=== PATIENT | male | born 1940 | race Caucasian/White ===

== ENCOUNTER 2017-07-13 14:14 | Inpatient (IN) | payer OTHER, BC ==
--- NOTE | 2017-07-13 15:41 | EDPHY ---
H & P Stated Complaint: cough HPI/ROS: CHIEF COMPLAINT: cough HISTORY OF PRESENT ILLNESS: The patient is a 76 y/o male with a history of lymphoma being treated with chemotherapy complaining of wheezing, coughing, rhinorrhea, inability to sleep, tachycardia, and mild fever, onset 5 days ago. He reports a new onset wheeze and a productive cough beginning five days ago. Around that time he also began having trouble sleeping. He is unsure of his fever. He went to urgent care this morning who directed him to the ED. He has associated increased oxygen need. He has nausea due to chemo being treated with Zofran. He denies diarrhea, myalgias, pain or burning with urination, or any other associated symptoms. No influenza vaccination. REVIEW OF SYSTEMS: A ten point review of systems was performed and is negative with the exception of the items mentioned in the HPI. Past medical history: 1. 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 Vital signs reviewed. Blood pressure 132/76, respiratory rate 22, room air pulse ox 80%. Eyes: Pupils equal and round, no conjunctival injection, no discharge. Anicteric. ENT, Mouth: Mucous membranes are moist, no oropharyngeal erythema or edema. Lips are dry. Neck: No lymphadenopathy, supple. No meningeal signs. Trachea midline. Respiratory: Bilateral scattered wheezes with course breath sounds. Cardiovascular: Regular rate and rhythm; no murmur, rub, or gallop. Gastrointestinal: Abdomen is soft and nontender, no masses or organomegaly, bowel sounds normal. Skin: Warm and dry, no rashes on exposed skin, normal color. Back: Nontender to palpation over the thoracolumbar spine. No CVAT. Extremities: No lower extremity edema, no calf tenderness or swelling. Neurological: Alert and oriented. Moving all four extremities easily and equally. MARKIE. EOMI. Facial expression symmetric. Tongue midline. Psychiatric: Normal affect. Source: Patient - Personal History Current Tetanus/Diphtheria Vaccine: Yes Current Tetanus Diphtheria and Acellular Pertussis (TDAP): Yes - Medical/Surgical History Hx Asthma: No Hx Chronic Respiratory Disease: No Hx Diabetes: No Hx Cardiac Disease: No Hx Renal Disease: No Hx Cirrhosis: No Hx Alcoholism: No Hx HIV/AIDS: No Hx Splenectomy or Spleen Trauma: No Other PMH: lymphoma, L wrist fx, - Social History Smoking Status: Never smoked Constitutional: Initial Vital Signs Temperature (C) 37.1 C 07/13/17 14:30 Heart Rate 99 07/13/17 14:30 Respiratory Rate 22 H 07/13/17 14:30 Blood Pressure 132/76 H 07/13/17 14:30 O2 Sat (%) 80 L 07/13/17 14:30 O2 Delivery Mode Nasal Cannula O2 (L/minute) 2 Allergies/Adverse Reactions: No Known Allergies Allergy (Verified 07/13/17 18:04) Home Medications: Medication Instructions Recorded Mesalamine 4.8 gm PO DAILY 07/13/17 Ondansetron Odt [Zofran Odt 4 mg 4 mg PO Q4 PRN 07/13/17 (*)] Romidepsin [Istodax] 10 mg IV MO 07/13/17 valACYclovir [Valtrex (*)] 500 mg PO DAILY PRN 07/13/17 Acetaminophen [Tylenol 325mg (*)] 650 mg PO Q4HRS PRN tab 07/19/17 Albuterol [Proventil Inhaler HFA 2 puffs IH Q4H PRN #1 mdi 07/19/17 (*)] Azithromycin [Zithromax] 500 mg PO DAILY 1 Days tab 07/19/17 Benzonatate [Tessalon Pearles] 100 mg PO TID PRN #30 cap 07/19/17 Cefdinir [Omnicef (*)] 300 mg PO BID 1 Days cap 07/19/17 Hydrocodone/APAP 5/325 [[place] 1 - 2 tab PO Q4HRS PRN #10 tab 07/19/17 5/325 (*)] guaiFENesin [Mucinex 600 MG (*)] 1,200 mg PO BID PRN #20 tab.er 07/19/17 predniSONE 20 mg PO BID #14 tablet 07/19/17 Medical Decision Making ED Course/Re-evaluation: The patient presents with a five day history of cough, wheezing, tachycardia, and difficulty sleeping. On exam he has scattered wheezes and course breath sounds. Plan for chest X-ray, labs, and flu swab. Flu A is positive and chest X-ray shows a lower right pneumonia. In addition, there is a mass in his upper right chest. I reassessed the patient and informed him of the results of his workup. He is not aware of having a chest mass and had a PET scan two months ago. He will be admitted for further treatment. He agrees. He also would like antivirals. Plan for admit. CT of chest reveals bilateral multifocal pneumonia. Lactate is 1.6. He arrived tachypneic and has an elevated WBC at 15,000-- qualifying for sepsis. He does not have severe sepsis. He will be treated with Azithromycin and rocephin for pneumonia and is being admitted to the hospitalist service. Differential Diagnosis: Fever in adults including but not limited to pneumonia, urinary tract infection , viral syndrome, and influenza. - Data Points Laboratory Results: Laboratory Results 07/13/17 16:00 07/13/17 16:00 Medications Given: Discontinued Medications Hydrocodone Bitart/Acetaminophen ([place] 5/325) 1 tab PO EDNOW ONE Stop: 07/13/17 19:01 Last Admin: 07/13/17 19:07 Dose: 1 tab Hydrocodone Bitart/Acetaminophen ([place] 5/325) 1 - 2 tab PO Q4HRS PRN PRN Reason: Pain, Moderate Able to Take PO Stop: 07/23/17 20:09 Last Admin: 07/13/17 22:07 Dose: 1 tab Albuterol (Proventil Neb) 3 ml IH EDNOW ONE Stop: 07/13/17 16:18 Last Admin: 07/13/17 16:32 Dose: 3 ml Albuterol (Proventil Neb) 3 ml IH Q1HR PRN PRN Reason: Short of Breath/Dyspnea Stop: 01/10/18 06:27 Last Admin: 07/14/17 12:07 Dose: 3 ml Albuterol/Ipratropium (Duoneb) 3 ml IH QID [facility] Stop: 01/09/18 20:59 Last Admin: 07/14/17 10:48 Dose: 3 ml Albuterol/Ipratropium (Duoneb) 3 ml IH Q4 [facility] Stop: 01/10/18 17:59 Last Admin: 07/18/17 16:38 Dose: 3 ml Azithromycin (Zithromax) 500 mg PO DAILY AYAAN PRN Reason: Protocol Stop: 07/20/17 08:59 Last Admin: 07/19/17 09:13 Dose: 500 mg Benzonatate (Tessalon Pearles) 100 mg PO TID PRN PRN Reason: Cough, Mild Stop: 01/10/18 07:24 Last Admin: 07/18/17 17:09 Dose: 100 mg Enoxaparin Sodium (Lovenox) 40 mg SC DAILY AYAAN Stop: 01/10/18 08:59 Last Admin: 07/19/17 09:12 Dose: 40 mg Guaifenesin (Mucinex) 1,200 mg PO BID AYAAN Stop: 01/10/18 14:14 Last Admin: 07/18/17 20:39 Dose: 1,200 mg Guaifenesin/Dextromethorphan (Robitussin Dm Oral Liquid) 10 ml PO Q4HRS PRN PRN Reason: Cough, Moderate Stop: 01/10/18 07:25 Last Admin: 07/18/17 17:09 Dose: 10 ml Sodium Chloride (Ns) 1,000 mls @ 0 mls/hr IV EDNOW ONE; Wide Open PRN Reason: Protocol Stop: 07/13/17 16:13 Last Admin: 07/13/17 16:32 Dose: 1,000 mls Azithromycin 500 mg/ Dextrose 255 mls @ 255 mls/hr IV EDNOW ONE PRN Reason: Protocol Stop: 07/13/17 18:31 Last Admin: 07/13/17 18:44 Dose: 255 mls Ceftriaxone Sodium/Dextrose (Rocephin 1 Gm (Premix)) 50 mls @ 100 mls/hr IV EDNOW ONE PRN Reason: Protocol Stop: 07/13/17 18:01 Last Admin: 07/13/17 17:51 Dose: 50 mls Sodium Chloride (Ns) 1,000 mls @ 0 mls/hr IV EDNOW ONE; Wide Open PRN Reason: Protocol Stop: 07/13/17 18:53 Last Admin: 07/13/17 19:01 Dose: 1,000 mls Azithromycin 500 mg/ Dextrose 255 mls @ 255 mls/hr IV DAILY AYAAN PRN Reason: Protocol Stop: 08/13/17 08:59 Last Admin: 07/18/17 09:03 Dose: 255 mls Ceftriaxone Sodium/Dextrose (Rocephin 1 Gm (Premix)) 50 mls @ 100 mls/hr IV DAILY AYAAN PRN Reason: Protocol Stop: 08/13/17 08:59 Last Admin: 07/19/17 09:13 Dose: 50 mls Potassium Chloride/Sodium Chloride (Ns W/ 20 Kcl/L) 1,000 mls @ 125 mls/hr IV CONT AYAAN Stop: 01/09/18 20:14 Last Admin: 07/14/17 06:13 Dose: 1,000 mls Lorazepam (Ativan) 0.5 - 1 mg PO Q8HRS PRN PRN Reason: Anxiety, Able to Take PO Stop: 01/09/18 20:09 Last Admin: 07/16/17 03:15 Dose: 0.5 mg Miscellaneous Medication (Mesalamine [Mesalamine]) 4.8 gm PO DAILY AYAAN Stop: 01/09/18 20:14 Last Admin: 07/19/17 09:14 Dose: 4.8 gm Miscellaneous Medication (Romidepsin [Istodax]) 10 mg IV MO AYAAN Stop: 01/14/18 08:59 Last Admin: 07/18/17 09:50 Dose: Not Given Ondansetron HCl (Zofran) 4 mg IVP EDNOW ONE Stop: 07/13/17 16:13 Last Admin: 07/13/17 16:32 Dose: 4 mg Ondansetron HCl (Zofran) 4 mg IVP EDNOW ONE Stop: 07/13/17 17:48 Last Admin: 07/13/17 17:51 Dose: 4 mg Oseltamivir Phosphate (Tamiflu) 75 mg PO EDNOW ONE Stop: 07/13/17 17:03 Last Admin: 07/13/17 17:32 Dose: 75 mg Oseltamivir Phosphate (Tamiflu) 75 mg PO BIDMEAL [facility] Stop: 07/18/17 18:01 Last Admin: 07/18/17 17:10 Dose: 75 mg Prednisone (Prednisone) 1 mg PO DAILY [facility] Stop: 01/10/18 08:59 Last Admin: 07/14/17 08:28 Dose: 1 mg Prednisone (Prednisone) 20 mg PO ONCE ONE Stop: 07/14/17 14:04 Last Admin: 07/14/17 15:01 Dose: 20 mg Prednisone (Prednisone) 40 mg PO BID [facility] Stop: 01/10/18 20:59 Last Admin: 07/19/17 09:13 Dose: 40 mg Departure - Departure Disposition: [facility] Inpatient Acute Clinical Impression: Influenza A Pneumonia Qualifiers: Pneumonia type: due to unspecified organism Laterality: right Lung location: lower lobe of lung Qualified Code(s): J18.1 - Lobar pneumonia, unspecified organism Condition: Good Report Scribed for: Kellen Shah Report Scribed by: Lucero Johnson Physician Review and Approval Statement: 07/13/17 15:41 Portions of this note were transcribed by the hospitalist medical director. I, Dr. Kellen Shah, personally performed the history, physical exam, and medical decision- making; and confirmed the accuracy of the information in the transcribed note.
[2017-07-13] MEDS ORDERED: ONDANSETRON 4 MG/2 ML VIAL IVP ONE ×2 (16:12→17:47)
[2017-07-13] MEDS ORDERED: NS 1,000 ML IV ONE ×2 (16:12→18:52)
[2017-07-13 16:14] LABS: PLATELET COUNT 327 10^3/uL (150-400)
[2017-07-13] MEDS ORDERED: ALBUTEROL 3 ML DEYVIAL IH ONE (16:17)
[2017-07-13 16:22] LABS: INR 1.41 (0.83-1.16); PROTIME(PATIENT) 17.4 SEC (12.0-15.0)
[2017-07-13] MEDS ORDERED: OSELTAMIVIR PHOSPHATE 75 MG CAP PO ONE (17:02)
[2017-07-13] MEDS ORDERED: IOPAMIDOL (ISOVUE-300) 100 ML BTL ONE ×2 (17:30→17:41)
[2017-07-13] MEDS ORDERED: AZITHROMYCIN IV 500 MG in D5W 250 ML IV ONE (17:32)
[2017-07-13] MEDS ORDERED: ONDANSETRON 4 MG/2 ML VIAL ONE (17:55)
[2017-07-13] MEDS ORDERED: HYDROCODONE/APAP 5/325 TAB PO ONE (19:00)
[2017-07-13] MEDS ORDERED: ONDANSETRON 4 MG/2 ML VIAL IVP PRN (20:10)
[2017-07-13] MEDS ORDERED: oxyCODONE IR 5 MG TAB PO PRN (20:10)
[2017-07-13] MEDS ORDERED: ONDANSETRON DISINTEGRATING 4 MG TAB PO PRN ×2 (20:10→20:15)
[2017-07-13] MEDS ORDERED: HYDROCODONE/APAP 5/325 TAB PO PRN (20:10)
[2017-07-13] MEDS ORDERED: ACETAMINOPHEN 325 MG TAB PO PRN (20:10)
[2017-07-13] MEDS ORDERED: ZOLPIDEM TARTRATE 5 MG TAB PO PRN (20:10)
[2017-07-13] MEDS ORDERED: LORazepam 2 MG/ML INJ IVP PRN (20:10)
[2017-07-13] MEDS ORDERED: HYDROmorphone HCL/NS/PF 0.4 MG/2 ML SYR IVP PRN (20:10)
[2017-07-13] MEDS ORDERED: valACYclovir 500 MG TAB PO PRN (20:15)
--- NOTE | 2017-07-13 20:35 | GHP ---
[f rep st] HISTORY AND PHYSICAL DATE OF ADMISSION: 07/13/2017 CHIEF COMPLAINT: Cough, shortness of breath and myalgias. 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 This has been persistent during his travel from [facility] back to [place]. He has had a cough which has been nonproductive and nonpleuritic without si gns of hemoptysis. He has had mild fever, no shaking chills. He also reports trouble sleeping witho ut orthopnea, PND, or signs of chest pain. He was seen in an urgent care which then directed him to the emergency department. He was noted to be hypoxic. In the emergency department, he was noted to be hypoxic on room air and appears to be moderately ill. Chest x-ray confirmed the findings of a rig ht lower lobe pneumonia and a CT scan revealed a right upper lobe pneumonia. These scans have been r eviewed by myself and with Radiology. Laboratory confirmed the findings of a positive influenza A. PAST MEDICAL HISTORY: Denies prior asthma, allergies, high blood pressure or diabetes. PAST SURGICAL HISTORY: None. FAMILY HISTORY: Shows no history of a bleeding diathesis, clotting disorder, histories of cancer or coronary disease. His brother does have prostate and colon cancer and he reports he of an UT, a lthough he reports his brother was quite overweight. This may represent a family history although th at is unclear. SOCIAL HISTORY: The gentleman lives here in [place] and also lives in [place]. His oncologist is at [facility]. He has been traveling. He has been receiving chemotherapy at [facility] on a weekly basis, either flying to [place] or driving there. 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 He receives on a weekly basis with associated side effects o f some nausea and a loss of taste of any food or wine. REVIEW OF SYSTEMS: A 10-point review of systems is otherwise negative except as noted above. Specif ically, he denies any diarrhea, pain and burning on urination, joint disorders or rash. PHYSICAL EXAMINATION: GENERAL: This is a well-developed, somewhat flushed appearing gentleman. VIT AL SIGNS: His initial blood pressure was slightly elevated and was hypoxic on room air at 80% and he was placed on supplemental oxygen. Respiratory rate has been as high as 22. His highest temperatur e was 37.1. He is noted also to have a leukocytosis of 15,000. HEENT: Shows his TMs are fuller. The throat is very mildly injected without lesions on the tongue or buccal mucosa. CHEST WALL: Nontend er to palpation without inspiratory splinting. LUNGS: Somewhat diminished. Breath sounds are reduc ed air movement but there is no wheezing but only few scattered crackles are heard. It is possible I can hear rales in his right lower lobe but I certainly cannot in the right upper lobe. HEART: Regu lar rate and rhythm. Normal S1, S2. The JVP is normal. ABDOMEN: Nontender, benign without hepatos plenomegaly. EXTREMITIES: No edema or cyanosis. Joints are without inflammation. LABORATORY: WBC elevated at 15,000, hemoglobin slightly low at 12.2. His INR is very slightly eleva telma at 1.49. Venous lactate 1.6 and normal chemistry panel. He has a mild respiratory acidosis with a CO2 level of 32 and a chloride of 89, calcium is 8.4, with normal renal function. His urine eben sis shows a mixture of mat of things but his final results are currently pending. He shows 2+ protei n, ketones and blood in the urine. The PCR for influenza A was detected positive and is negative for influenza B. A CT scan of the chest confirmed the findings of a right lower lobe and a right upper lobe pneumonia. He has multifocal bilateral pneumonia with more focal areas of nodular opacification in the right l debbie. There are small bilateral pleural effusions. The ascending aorta is slightly dilated at 4 cm w ithout evidence of dissection. There is evidence of atherosclerotic disease in the coronary arteries . ASSESSMENT: 1. Acute pneumonia in the right upper lobe and right lower lobe. This is confirmed to be both an in fluenza A and may be a secondary bacterial infection of a community-acquired pneumonia. He has been suffering from this for the last 5 days during his transport and thus, may have secondarily developed a bacterial infection. I will order a procalcitonin to assess possibility of a bacterial infection but he will be treated with azithromycin, Rocephin and Tamiflu. He is clearly outside the window for an influenza infection although this may be prudent. This can be assessed within 24-48 hours and ad ditionally, he will be given pulmonary bronchodilators. Steroids will be held at this time. 2. Lymphoma, Sezary syndrome. The gentleman has been receiving Romidepsin on a weekly basis at [facility]. An Oncology consultation may be prudent just to complete the evaluation of this matter as to w hether there is any further care which would be needed for his lymphoma. Note that his white count w as elevated at 15,000 although differential is currently pending. His absolute neutrophils though ar e reported as 1.55 and thus he does not have a neutropenic fever or infection. 3. He has acute sepsis secondary to pneumonia with leukocytosis, hypoxemia and tachypnea. It is lik ricki secondary to the pneumonia. Two blood cultures are currently pending. 4. His code status is full. 5. Deep venous thrombosis prophylaxis will be with Lovenox. 6. The elevated INR is perhaps secondary to his acute infection and may be due to the Romidepsin. A full CMP will be ordered to assess his liver function status. DISPOSITION: The gentleman will be admitted to inpatient status as it is likely to require greater t krause 2 midnights to resolve this matter. /[id number]/MODL
[2017-07-13] MEDS: NS W/ 20 KCl/L 1,000 ML IV SCH (22:07)
[2017-07-13] MEDS: MESALAMINE 4.8 GM PO SCH (22:17)
[2017-07-13] MEDS: IPRATROPIUM/ALBUTEROL 3 ML DEYVIAL IH SCH (23:00)
[2017-07-14] MEDS: IPRATROPIUM/ALBUTEROL 3 ML DEYVIAL IH SCH ×4 (04:59→22:25)
[2017-07-14 05:28] LABS: PLATELET COUNT 305 10^3/uL (150-400)
[2017-07-14 05:36] LABS: INR 1.44 (0.83-1.16); PROTIME(PATIENT) 17.7 SEC (12.0-15.0)
[2017-07-14] MEDS: LORazepam 0.5 MG TAB PO PRN (06:13)
[2017-07-14] MEDS: NS W/ 20 KCl/L 1,000 ML IV SCH (06:13)
[2017-07-14] MEDS: ALBUTEROL 3 ML DEYVIAL IH PRN ×2 (07:01→12:07)
[2017-07-14] MEDS: BENZONATATE 100 MG CAP PO PRN ×2 (07:38→18:14)
[2017-07-14] MEDS: GUAIFENESIN/DM 10 ML UDCUP PO PRN (07:38)
[2017-07-14] MEDS: ENOXAPARIN 40 MG/0.4 ML SYR SC SCH (08:28)
[2017-07-14] MEDS: OSELTAMIVIR PHOSPHATE 75 MG CAP PO SCH ×2 (08:28→18:15)
[2017-07-14] MEDS: AZITHROMYCIN IV 500 MG in D5W 250 ML IV SCH (08:28)
[2017-07-14] MEDS: MESALAMINE 4.8 GM PO SCH (08:29)
[2017-07-14] MEDS ORDERED: predniSONE 1 MG TAB PO SCH ×2 (09:00→21:00)
--- NOTE | 2017-07-14 12:05 | PDMN ---
Medical Necessity Medical necessity: Pt meets IP criteria per MD; est los >2 mn for eval/tx of possible sepsis r/t pneumonia & influenza A w/hypoxemia, tachypnea, mild fever, cough, as well as elevated INR; admit for further workup/monitoring, supportive care, IVFs, IV abx, blood cxs & bronchodilators; hx Sezary syndrome lymphoma on chemo; per H&P & order 07/13/17
[2017-07-14] MEDS ORDERED: predniSONE 20 MG TAB PO ONE (14:03)
[2017-07-14] MEDS: guaiFENesin 600 MG TAB.ER PO SCH ×2 (15:01→21:16)
--- NOTE | 2017-07-14 15:38 | HOSPPROG ---
Hospitalist Progress Note Assessment/Plan: 76-year-old male with known lymphoma admitted yesterday with multiple lobe pneumonia. Since then he has had worsening hypoxemia, afebrile, and increasing cough, - acute multilobar pneumonia most noted in the right upper lobe and right lower lobe. Procalcitonin is elevated suggestive of a bacterial infection in addition to his influenza infection. Currently he is treated with both Tamiflu and Rocephin plus Zithromax. Hypoxemia is worsening with coarse breath sounds. Plan: Increase duo nebs to q.4 hours add Mucinex and add prednisone orally in higher doses. - Sezary syndrome lymphoma: He receives chemotherapy weekly at [facility]. Oncology will be consulted. - sepsis on admission with tachypnea tachycardia hypertension leukocytosis. Sepsis secondary to acute Bacterial and viral pneumonia pneumonia. - Disposition: Undetermined patient should be inpatient status. Subjective: Reports he has worsening shortness of breath and the noted he needs more oxygen. Cough is productive of whitish sputum. No hemoptysis or chest pain. Objective: Vital Signs Temp Pulse Resp BP Pulse Ox 36.6 C 95 20 137/82 H 95 07/14/17 11:35 07/14/17 12:09 07/14/17 12:09 07/14/17 11:40 07/14/17 12:09 Laboratory Results 07/14/17 05:00 07/14/17 05:00 07/13/17 07/14/17 07/15/17 05:59 05:59 05:59 Intake Total 2300 982 Balance 2300 982 PT 17.7 SEC (12.0-15.0) H 07/14/17 05:00 INR 1.44 (0.83-1.16) H 07/14/17 05:00 - Time Spent With Patient Time Spent with Patient: greater than 35 minutes Time Spent with Patient: Greater than 35 minutes spent on this patients care, greater than 50% of time spent counseling, educating, and coordinating care regarding the above mentioned plan. - Pending Discharge Pending Discharge Within 24 Hours: No Pending Discharge Within 48 Hours: No - Physical Exam Constitutional: other ( Mild respiratory distress noted with tachypnea) Eyes: PERRL, anicteric sclera Ears, Nose, Mouth, Throat: moist mucous membranes, hearing normal Cardiovascular: regular rate and rhythym, no murmur, rub, or gallop Respiratory: reduced air movement, expiratory wheeze, inspiratory crackles, bronchial breath sounds, rhonchi Gastrointestinal: normoactive bowel sounds, soft, non-tender abdomen, no palpable masses Genitourinary: no bladder fullness Skin: warm Musculoskeletal: full muscle strength Neurologic: AAOx3 Psychiatric: interacting appropriately ICD10 Worksheet Patient Problems: Problems Problem Status Onset Influenza A Acute Pneumonia Acute
--- NOTE | 2017-07-14 16:01 | ASMTCMCOM ---
CM Note CM Note Notes: Pt admitted w/flu and PNA. Per H&P, pt is currently being treated at [facility] with chemo for Sezary Lymphoma. His oncologist is at [place] and pt also has family near [place]. Met w/pt to discuss; he lives w/ partner marketing intern here in [place] and partner marketing intern in [place] and makes trips to [place] for treatments. Pt said they plan to be here for next two weeks at least. DC needs, if any, not clear yet. CM will follow. Date Signed: 07/14/2017 04:00 PM Electronically Signed By:Stacia Kline RN
[2017-07-14] MEDS: predniSONE 20 MG TAB PO SCH ×2 (21:17→23:03)
[2017-07-15] MEDS: BENZONATATE 100 MG CAP PO PRN ×2 (00:46→20:45)
[2017-07-15] MEDS: LORazepam 0.5 MG TAB PO PRN (00:46)
[2017-07-15] MEDS: IPRATROPIUM/ALBUTEROL 3 ML DEYVIAL IH SCH ×6 (03:27→22:22)
[2017-07-15 05:45] LABS: INR 1.43 (0.83-1.16); PROTIME(PATIENT) 17.6 SEC (12.0-15.0)
[2017-07-15 05:58] LABS: PLATELET COUNT 369 10^3/uL (150-400)
--- NOTE | 2017-07-15 08:25 | HOSPPROG ---
Hospitalist Progress Note Assessment/Plan: 76-year-old male with known lymphoma admitted yesterday with multiple lobe pneumonia. Since then he has had worsening hypoxemia, afebrile, and increasing cough, - acute multilobar pneumonia most noted in the right upper lobe and right lower lobe. Procalcitonin is elevated suggestive of a bacterial infection in addition to his influenza infection. Currently he is treated with both Tamiflu and Rocephin plus Zithromax. Hypoxemia is worsening with coarse breath sounds. Plan: Increase duo nebs to q.4 hours add Mucinex and add prednisone orally in higher doses. - Sezary syndrome lymphoma: He receives chemotherapy weekly at [facility]. Oncology will be consulted. - sepsis on admission with tachypnea tachycardia hypertension leukocytosis. Sepsis secondary to acute Bacterial and viral pneumonia pneumonia. - Disposition: Undetermined patient should be inpatient status. CT scan of the chest was reviewed with Radiology possibly exists of the right upper lobe mass being an extensive lymphoma. Oncology will be consulted. Will continue his current pulmonary care as he is slowly improving. Time 45 min Subjective: Reports he feels maybe slightly better than the cough is slightly productive of whitish sputum. He has minimal appetite as he has no taste secondary to his chemotherapy. No vomiting Objective: Vital Signs Temp Pulse Resp BP Pulse Ox 36.7 C 81 16 145/100 H 96 07/15/17 07:30 07/15/17 07:30 07/15/17 07:30 07/15/17 07:30 07/15/17 07:30 Laboratory Results 07/15/17 05:00 07/14/17 05:00 07/14/17 07/15/17 07/16/17 05:59 05:59 05:59 Intake Total 2300 2032 Balance 2300 2032 PT 17.6 SEC (12.0-15.0) H 07/15/17 05:00 INR 1.43 (0.83-1.16) H 07/15/17 05:00 Laboratory Tests 07/13/17 07/13/17 07/13/17 16:00 16:00 16:00 WBC 15.45 H Hgb 12.2 L INR 1.41 H Procalcitonin 0.58 H 07/14/17 07/14/17 07/15/17 05:00 05:00 05:00 WBC 14.32 H 16.48 H Hgb 9.7 L 9.9 L INR 1.44 H Procalcitonin 07/15/17 05:00 WBC Hgb INR 1.43 H Procalcitonin - Time Spent With Patient Time Spent with Patient: greater than 35 minutes Time Spent with Patient: Greater than 35 minutes spent on this patients care, greater than 50% of time spent counseling, educating, and coordinating care regarding the above mentioned plan. - Pending Discharge Pending Discharge Within 24 Hours: No Pending Discharge Within 48 Hours: No - Physical Exam Constitutional: other (Acutely ill with respiratory difficulties. Patient requiring supple oxygen) Eyes: PERRL Ears, Nose, Mouth, Throat: moist mucous membranes, hearing normal Cardiovascular: regular rate and rhythym, no murmur, rub, or gallop Respiratory: reduced air movement, expiratory wheeze, inspiratory crackles, bronchial breath sounds, rhonchi Gastrointestinal: normoactive bowel sounds, soft, non-tender abdomen, no palpable masses Genitourinary: no bladder fullness Skin: warm Musculoskeletal: generalized weakness Neurologic: AAOx3, CN II-XII Intact ICD10 Worksheet Patient Problems: Problems Problem Status Onset Influenza A Acute Pneumonia Acute
[2017-07-15] MEDS: OSELTAMIVIR PHOSPHATE 75 MG CAP PO SCH ×2 (09:05→16:52)
[2017-07-15] MEDS: guaiFENesin 600 MG TAB.ER PO SCH ×2 (09:05→20:45)
[2017-07-15] MEDS: predniSONE 20 MG TAB PO SCH ×2 (09:05→21:05)
[2017-07-15] MEDS: MESALAMINE 4.8 GM PO SCH (09:06)
[2017-07-15] MEDS: ENOXAPARIN 40 MG/0.4 ML SYR SC SCH (09:07)
[2017-07-15] MEDS: AZITHROMYCIN IV 500 MG in D5W 250 ML IV SCH (10:44)
[2017-07-15] MEDS: GUAIFENESIN/DM 10 ML UDCUP PO PRN (11:34)
--- NOTE | 2017-07-15 17:19 | ASMTCMCOM ---
CM Note CM Note Notes: Spoke w/RN, states pt will be indenpendent at dc. Anticipate will dc home w/support of when medically stable. CM available for any changes. Date Signed: 07/15/2017 05:19 PM Electronically Signed By:Lianet Urbina RN
[2017-07-16] MEDS: IPRATROPIUM/ALBUTEROL 3 ML DEYVIAL IH SCH ×6 (01:28→22:51)
[2017-07-16] MEDS: GUAIFENESIN/DM 10 ML UDCUP PO PRN ×3 (03:15→17:59)
[2017-07-16] MEDS: LORazepam 0.5 MG TAB PO PRN (03:15)
[2017-07-16 05:17] LABS: PLATELET COUNT 477 10^3/uL (150-400)
[2017-07-16] MEDS: OSELTAMIVIR PHOSPHATE 75 MG CAP PO SCH ×2 (08:38→17:59)
[2017-07-16] MEDS: AZITHROMYCIN IV 500 MG in D5W 250 ML IV SCH (08:38)
[2017-07-16] MEDS: ENOXAPARIN 40 MG/0.4 ML SYR SC SCH (08:38)
[2017-07-16] MEDS: predniSONE 20 MG TAB PO SCH ×2 (08:38→20:35)
[2017-07-16] MEDS: guaiFENesin 600 MG TAB.ER PO SCH ×2 (08:38→20:35)
[2017-07-16] MEDS: MESALAMINE 4.8 GM PO SCH (08:39)
--- NOTE | 2017-07-16 11:52 | HOSPPROG ---
Hospitalist Progress Note Assessment/Plan: 76-year-old male with known lymphoma admitted yesterday with multiple lobe pneumonia. Since then he has had worsening hypoxemia, afebrile, and increasing cough, - acute multilobar pneumonia most noted in the right upper lobe and right lower lobe. Procalcitonin is elevated suggestive of a bacterial infection in addition to his influenza infection. Currently he is treated with both Tamiflu and Rocephin plus Zithromax. 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 Oncology will be consulted. Discussed with Dr Lucille Hadley who will see - sepsis on admission with tachypnea tachycardia hypertension leukocytosis. Sepsis secondary to acute Bacterial and viral pneumonia pneumonia. - Disposition: Undetermined patient should be inpatient status. CT scan of the chest was reviewed with Radiology possibly exists of the right upper lobe mass being an extensive lymphoma. Will continue his current pulmonary care as he is slowly improving. Oncology to consult today. Oncology did note appreciated and patient will begin chemotherapy tomorrow. Time 45 min Subjective: reports feeling better without fever, cough, SOB. hemoptysis Objective: Vital Signs Temp Pulse Resp BP Pulse Ox 36.6 C 81 16 152/98 H 94 07/16/17 07:20 07/16/17 07:20 07/16/17 07:20 07/16/17 07:20 07/16/17 07:20 Laboratory Results 07/16/17 05:05 07/16/17 05:05 07/15/17 07/16/17 07/17/17 05:59 05:59 05:59 Intake Total 2031 1200 Balance 2031 1200 PT 17.6 SEC (12.0-15.0) H 07/15/17 05:00 INR 1.43 (0.83-1.16) H 07/15/17 05:00 Laboratory Tests 07/13/17 07/14/17 07/15/17 16:00 05:00 05:00 WBC 15.45 H 14.32 H 16.48 H Hgb 12.2 L Plt Count 07/16/17 05:05 WBC 19.17 H Hgb 10.3 L Plt Count 477 H D - Time Spent With Patient Time Spent with Patient: greater than 35 minutes Time Spent with Patient: Greater than 35 minutes spent on this patients care, greater than 50% of time spent counseling, educating, and coordinating care regarding the above mentioned plan. - Pending Discharge Pending Discharge Within 24 Hours: No Pending Discharge Within 48 Hours: Yes Pending Discharge Date: 07/18/17 Pending Discharge Time: 11:00 ICD10 Worksheet Patient Problems: Problems Problem Status Onset Influenza A Acute Pneumonia Acute
[2017-07-16] MEDS: BENZONATATE 100 MG CAP PO PRN (17:59)
--- NOTE | 2017-07-16 19:33 | GCON ---
[f rep st] CONSULTATION Corrected report ONCOLOGY CONSULTATION REASON FOR CONSULTATION: History of Sezary syndrome with cough, shortness of breath. 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 The patient has been receiving his oncology care at [facility]. I do not have any primary records available at the time of this dictation. He reports that he suffered for 2 years with what was felt to be eczema, but then was ultimately diagnosed with Sezary syndrome approximately 5 years ago while at [facility]. He is unable to remember many specifics of his prior therapy. However, he was at one point treated with oral methotrexate. In the last few years, he was on a clinical trial with immunotherapy with pembrolizumab, which controlled his symptoms well. However, he developed colitis this last summer necessitating cessation of the drug. He has been on romidepsin since this summer, and had been on it for a period of time prior to the pembrolizumab. He currently receives romidepsin weekly, 3 weeks on, 1 week off. He last received July 07. He travels back and forth from [place] to [place], and noted approximately 5 days ago he started developing symptoms of cough, low-grade fever, and wheezing. He was ultimately referred to the emergency room, where he was noted to be hypoxic on room air. Chest x-ray identified a right lower lobe pneumonia, and a CT scan showed evidence of a right upper lobe pneumonia with more focal areas of nodular opacification in the right lung. He was admitted by Dr. Hull for further evaluation and treatment of the pneumonia. He has been pancultured and has been found to be positive for influenza A. He has been started on Rocephin and Tamiflu. Of note, he reports that he had a PET CT approximately 6 weeks ago to assess the status of the Sezary syndrome, and no specific abnormalities were identified. PAST MEDICAL HISTORY: Unremarkable. PAST SURGICAL HISTORY: Unremarkable. FAMILY HISTORY: Noncontributory. His brother does have prostate cancer and colon cancer. SOCIAL HISTORY: He lives in [place] and also in [place]. He is followed at [facility] primarily. He does not smoke cigarettes. REVIEW OF SYSTEMS: A 10-point review of systems is negative other than noted in HPI. PHYSICAL EXAM: GENERAL: He is very comfortable appearing, lying in bed, wearing oxygen. VITAL SIGNS: Blood pressure 147/86, heart rate 81, respirations 20, O2 saturation on 4 L of oxygen is 96%. HEENT: Pupils equal. Sclerae anicteric. Oropharynx clear. LUNGS: Notable for bilateral crackles, more prominent in the apices. No wheezing. HEART: Regular rate. ABDOMEN: Soft, nontender. EXTREMITIES: No edema. LABORATORY DATA: White blood cell count 19.7, hematocrit 30.2, platelets 477. He has a mild left shift with percent neutrophils 70%, percent bands 11%. Metabolic panel is unremarkable other than albumin of 2.4. His creatinine is 0.7. IMPRESSION: This is a 76-year-old male, currently with a 5-year history of Sezary syndrome treated with romidepsin. Romidepsin is a histone deacetylase inhibitor. It can cause QT prolongation, especially when administered with other drugs that can prolong the QT interval. It is metabolized by CY. Potent inhibitors and inducers of CY should be avoided. I asked pharmacy to review potential drug interactions with his current medications and none were identified. This agent can be associated with some immune suppression. The patient is not absolutely neutropenic. It is helpful to know that his PET CT was unremarkable 6 weeks ago, suggesting that the CT findings are most consistent with an infectious process, which is compatible with his clinical symptoms. The patient is clinically improving on Tamiflu and Rocephin. I told the patient I would be happy to communicate with his primary oncologist at some point. We will continue to follow along with you. /[id number]/MODL Asiya worktype, 07/19/17, zaid GUNTER
[2017-07-17] MEDS: IPRATROPIUM/ALBUTEROL 3 ML DEYVIAL IH SCH ×7 (02:10→22:11)
[2017-07-17 05:21] LABS: PLATELET COUNT 501 10^3/uL (150-400)
[2017-07-17] MEDS: BENZONATATE 100 MG CAP PO PRN ×2 (09:05→17:34)
[2017-07-17] MEDS: OSELTAMIVIR PHOSPHATE 75 MG CAP PO SCH ×2 (09:05→17:34)
[2017-07-17] MEDS: predniSONE 20 MG TAB PO SCH ×2 (09:05→20:30)
[2017-07-17] MEDS: guaiFENesin 600 MG TAB.ER PO SCH ×2 (09:05→20:29)
[2017-07-17] MEDS: GUAIFENESIN/DM 10 ML UDCUP PO PRN ×2 (09:05→17:35)
[2017-07-17] MEDS: MESALAMINE 4.8 GM PO SCH (09:06)
[2017-07-17] MEDS: ENOXAPARIN 40 MG/0.4 ML SYR SC SCH (09:08)
[2017-07-17] MEDS: AZITHROMYCIN IV 500 MG in D5W 250 ML IV SCH (09:08)
--- NOTE | 2017-07-17 13:48 | SOAPPROG ---
SOAP Progress Note Assessment/Plan: Assessment: 1. Pneumonia/Influenza-clinically improved on Tamiflu, Rocephin and Zithromax. O2 requirements decreasing. 2. Sezary syndrome-patient followed at [facility]. I gave him my card if he ever wants to coordinate oncology care more locally. Would hold on any chemotherapy treatment for now. Plan: Anticipate discharge in the next 1-2 days. 07/17/17 13:45 Subjective: Feels better, but doesn't feel ready to go home Objective: Vital Signs Temp Pulse Resp BP Pulse Ox 36.4 C 80 14 135/81 H 94 07/17/17 07:41 07/17/17 07:41 07/17/17 07:41 07/17/17 07:41 07/17/17 07:41 Laboratory Results 07/17/17 05:13 07/17/17 05:13 07/16/17 07/17/17 07/18/17 05:59 05:59 05:59 Intake Total 1200 1390 Balance 1200 1390 PT 17.6 SEC (12.0-15.0) H 07/15/17 05:00 INR 1.43 (0.83-1.16) H 07/15/17 05:00 Physical Exam - Physical Exam General Appearance: alert, no apparent distress Neck: supple Respiratory: other (scattered crackles) Abdomen: non-tender, soft Neuro/Psych: alert, normal mood/affect ICD10 Worksheet Patient Problems: Problems Problem Status Onset Influenza A Acute Pneumonia Acute
--- NOTE | 2017-07-17 16:39 | HOSPPROG ---
Hospitalist Progress Note Assessment/Plan: 76-year-old male with known lymphoma admitted yesterday with multiple lobe pneumonia. Since then he has had worsening hypoxemia, afebrile, and increasing cough. He is improved and continues to require oxygen. Patient should be able to be discharged on 07/18/2017 perhaps with oxygen. He will further antibiotics as an outpatient as this may be a mixed infection. There is a concern of using Levaquin as it prolongs QT interval as does his chemotherapy for his lymphoma. If Levaquin is used his q.2 interval must be watched. He is not scheduled for further chemotherapy until mid July and thus could complete a course of Levaquin before that. - acute multilobar pneumonia most noted in the right upper lobe and right lower lobe. Procalcitonin is elevated suggestive of a bacterial infection in addition to his influenza infection. Currently he is treated with both Tamiflu and Rocephin plus Zithromax. 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 Oncology will be consulted. Discussed with Dr Lucille Hadley who will see - sepsis on admission with tachypnea tachycardia hypertension leukocytosis. Sepsis secondary to acute Bacterial and viral pneumonia pneumonia. Care was discussed with Dr. Lucille Hadley with [facility] Oncology and the QT interval issue with Levaquin was discussed with Pharmacy. Disposition: Probable discharge on 07/18/2017. Home oxygen evaluation will need to be performed. The gentleman does have a home here in [place] and continues and be followed up by Pulmonary for his oxygen needs. Note I believe his next chemotherapy dose is in mid July and he could complete a course of Levaquin before that starts regarding the problem of the QT interval Subjective: Reports he is feeling improved with less cough and less shortness of breath. No chest pain nausea or vomiting Objective: Vital Signs Temp Pulse Resp BP Pulse Ox 36.2 C 83 16 116/92 H 91 L 07/17/17 15:55 07/17/17 15:55 07/17/17 15:55 07/17/17 15:55 07/17/17 15:55 Laboratory Results 07/17/17 05:13 07/17/17 05:13 07/16/17 07/17/17 07/18/17 05:59 05:59 05:59 Intake Total 1200 1390 Balance 1200 1390 PT 17.6 SEC (12.0-15.0) H 07/15/17 05:00 INR 1.43 (0.83-1.16) H 07/15/17 05:00 - Time Spent With Patient Time Spent with Patient: greater than 35 minutes Time Spent with Patient: Greater than 35 minutes spent on this patients care, greater than 50% of time spent counseling, educating, and coordinating care regarding the above mentioned plan. - Pending Discharge Pending Discharge Within 24 Hours: Yes Pending Discharge Date: 07/18/17 Pending Discharge Time: 11:00 - Physical Exam Constitutional: no apparent distress Eyes: PERRL, anicteric sclera Ears, Nose, Mouth, Throat: moist mucous membranes, hearing normal Cardiovascular: regular rate and rhythym, no murmur, rub, or gallop Respiratory: reduced air movement, inspiratory crackles, rhonchi Gastrointestinal: normoactive bowel sounds, soft, non-tender abdomen, no palpable masses Genitourinary: no bladder fullness Musculoskeletal: full muscle strength Neurologic: AAOx3, CN II-XII Intact Psychiatric: interacting appropriately ICD10 Worksheet Patient Problems: Problems Problem Status Onset Influenza A Acute Pneumonia Acute
[2017-07-18] MEDS: IPRATROPIUM/ALBUTEROL 3 ML DEYVIAL IH SCH ×6 (01:30→16:38)
[2017-07-18 05:14] LABS: PLATELET COUNT 528 10^3/uL (150-400)
[2017-07-18] MEDS ORDERED: [UNRECOGNIZED DRUG - OTHER] IV SCH (09:00)
[2017-07-18] MEDS: AZITHROMYCIN IV 500 MG in D5W 250 ML IV SCH (09:03)
[2017-07-18] MEDS: GUAIFENESIN/DM 10 ML UDCUP PO PRN ×2 (09:03→17:09)
[2017-07-18] MEDS: BENZONATATE 100 MG CAP PO PRN ×2 (09:03→17:09)
[2017-07-18] MEDS: OSELTAMIVIR PHOSPHATE 75 MG CAP PO SCH ×2 (09:03→17:10)
[2017-07-18] MEDS: ENOXAPARIN 40 MG/0.4 ML SYR SC SCH (09:03)
[2017-07-18] MEDS: predniSONE 20 MG TAB PO SCH ×2 (09:03→20:39)
[2017-07-18] MEDS: guaiFENesin 600 MG TAB.ER PO SCH ×2 (09:03→20:39)
[2017-07-18] MEDS: MESALAMINE 4.8 GM PO SCH (09:04)
--- NOTE | 2017-07-18 12:46 | ASMTCMCOM ---
CM Note CM Note Notes: Per Dr. Hull, patient is ready to d/c home today with O2. No further d/c needs. CM available if additional needs arise. Date Signed: 07/18/2017 12:45 PM Electronically Signed By:Ese Baum LCSW
--- NOTE | 2017-07-18 15:27 | SOAPPROG ---
SOAP Progress Note Assessment/Plan: 76-year-old male with known lymphoma admitted with multiple lobe pneumonia and + influenza - acute multilobar pneumonia with hypoxia finishing tamiflu course today finishing 5 days azithro today on Rocephin, was discussion re FQ po vs 5 days Tx which would be done today continue O2 support, PO steroids (on chronically but home meds say 1 mg?) - Sezary syndrome lymphoma chemotherapy weekly at [facility] seen by Dr Lucille Hadley here as a consult - sepsis on admission with tachypnea, tachycardia, leukocytosis. secondary to acute bacterial and viral pneumonia improving, bd cx NTD leukocytosis could also be secondary to the use of steroids (need to try and verify home dosage/taper as needed as an outpt) -normocytic anemia, stable he doesn't think he has chronic anemia, but will check with oncologist Disposition: Probable discharge on 07/19/2017. Home oxygen evaluation will need to be performed. Strongly advised him to establish with a local PCP. CM to assist in AM with appt prior to discharge, to FU hosp stay and O2 Subjective: in room. Says feeling much better, eager to go home. No local PCP, oncologist is at [facility]. Denies SOB/CP/v/d. Objective: Vital Signs Temp Pulse Resp BP Pulse Ox 98.1 F 78 18 117/91 H 92 07/18/17 08:00 07/18/17 12:30 07/18/17 12:30 07/18/17 08:00 07/18/17 12:30 Laboratory Results 07/18/17 04:52 07/18/17 04:52 07/17/17 07/18/17 07/19/17 11:59 11:59 11:59 Intake Total 1390 760 Balance 1390 760 PT 17.6 SEC (12.0-15.0) H 07/15/17 05:00 INR 1.43 (0.83-1.16) H 07/15/17 05:00 - Time Spent With Patient Time Spent With Patient: 40 - Pending Discharge Pending Discharge Within 24 Hours: Yes Pending Discharge Date: 07/19/17 Pending Discharge Time: 11:00 Physical Exam - Physical Exam General Appearance: WD/WN, alert, no apparent distress Respiratory: crackles (faint at bases), No respiratory distress, No rhonchi, No wheezing Cardiac/Chest: regular rate, rhythm, No edema Abdomen: normal bowel sounds, non-tender, soft Skin: warm/dry Neuro/Psych: alert, normal mood/affect, No cognition abnormalities ICD10 Worksheet Patient Problems: Problems Problem Status Onset Influenza A Acute Pneumonia Acute
[2017-07-18 16:51] VITALS: RESP 18
[2017-07-18] MEDS ORDERED: guaiFENesin 600 MG TAB.ER PO PRN (21:24)
[2017-07-18] MEDS ORDERED: IPRATROPIUM/ALBUTEROL 3 ML DEYVIAL IH PRN (21:25)
[2017-07-19 07:29] VITALS: BP 149/85; PULSE 72; TEMP 98; O2SAT 92
--- NOTE | 2017-07-19 08:41 | PDHOMEO2F ---
Home Oxygen Face to Face Home Orders: I certify that a physician or a nurse practitioner or physician's therapist's assistant has had a [id number] encounter with this patient on the date of this order due to the diagnosis listed, which relates to the primary reason the patient requires home oxygen. Alternative treatments have been tried, or considered, and deemed ineffective. It is anticipated that supplemental oxygen will result in improvement with treatment. Home oxygen qualifying diagnosis: hypoxia, pneumonia Home oxygen secondary diagnosis: lymphoma SpO2 on room air (%): 87 Frequency of home oxygen needed: continuous Home oxygen liters per minute: 2L Home oxygen delivery device: nasal cannula Concentrator: Yes E-tanks for mobility and back up: Yes If ordering portable O2, is the patient mobile in the home?: Yes I certify that, based on these findings, the home oxygen is medically necessary for this patient for the following length of time. Length of time home oxygen needed: 1 month
[2017-07-19] MEDS ORDERED: AZITHROMYCIN 250 MG TAB PO SCH (09:00)
[2017-07-19] MEDS: ENOXAPARIN 40 MG/0.4 ML SYR SC SCH (09:12)
[2017-07-19] MEDS: predniSONE 20 MG TAB PO SCH (09:13)
[2017-07-19] MEDS: MESALAMINE 4.8 GM PO SCH (09:14)
--- NOTE | 2017-07-19 16:25 | ASDISCHSUM ---
Discharge Information Plan Status:Home with No Needs Medically Cleared to Leave:07/18/2017 Discharge Date:07/19/2017 01:32 PM CM D/C Disposition: ADT D/C Disposition:Home, Routine, Self-Care Projected Discharge Date:07/19/2017 12:00 AM Transportation at D/C: Discharge Delay Reason: Follow-Up Date:07/19/2017 12:00 AM Discharge Slot: Final Diagnosis: Placement Information Patient Contact Information Contact Name:RUDOLPH Relationship: Address:[address] [place] [address] City:[place] Alternate Phone: State/Zip Code:[place] [address] Email: Financial Information Financial Class: Primary Plan Desc:MEDICARE INPATIENT Primary Plan Number:[id number] Secondary Plan Desc: OUT OF STATE INDEMNITY Secondary Plan Number:[id number] Assessment Information [facility] CM Progress Note CM Note CM Note Notes: Pt admitted w/flu and PNA. Per H&P, pt is currently being treated at [facility] with chemo for Sezary Lymphoma. His oncologist is at [facility] and pt also has family near [place]. Met w/pt to discuss; he lives w/ department of natural resources officer here in [place] and department of natural resources officer in [place] and makes trips to [place] for treatments. Pt said they plan to be here for next two weeks at least. DC needs, if any, not clear yet. CM will follow. Date Signed: 07/14/2017 04:00 PM Electronically Signed By:Stacia Kline RN [facility] CM Progress Note CM Note CM Note Notes: Spoke w/RN, states pt will be indenpendent at [place]. Anticipate will dc home w/support of when medically stable. CM available for any changes. Date Signed: 07/15/2017 05:19 PM Electronically Signed By:Lianet Urbina RN [facility] CM Progress Note CM Note CM Note Notes: Per Dr. Hull, patient is ready to d/c home today with O2. No further d/c needs. CM available if additional needs arise. Date Signed: 07/18/2017 12:45 PM Electronically Signed By:Ese Baum LCSW Case Management Discharge Plan Note Case Management Discharge Discharge Order Complete? Answers: Yes Followup Appointment 07/22/2017 09:15 AM Patient to Obtain Answers: via [facility] Transportation Arranged Answers: Family/Friends EMTALA Complete Answers: No Case Management Transport Answers: No Form Complete Faxed Final Orders Answers: No Agency/Facility Transfer Answers: No Report Printed & Faxed to Receiving Agency Family Notified Answers: No Discharge Comments Notes: CM spoke w/ Dr. Camejo regarding d/c POC. Pt is being discharged today. CM made pt a new PCP appointment. Appointment has been inputted into d/c section of [employer]. CM available for changes. Plan: Independent Date Signed: 07/19/2017 10:59 AM Electronically Signed By:KEVEN Rodriges Intervention Information Intervention Type:*IM-Signed Date of Service:07/19/2017 11:31 AM Patient Type:Inpatient Staff Member:Astrid Fatima Hours: Discipline: Severity: Comment:
--- NOTE | 2017-07-21 14:08 | GDS ---
[f rep st] DISCHARGE SUMMARY SERVICE: [facility] hospitalist. CONSULTS: Hematology/Oncology, Dr. Lucille Hadley. PROCEDURES: Chest x-ray, showing right lower lobe bronchopneumonia and right upper lobe versus media stinal mass. Chest CT showed a multifocal bilateral pneumonia with nodular opacification. Recommend ation to follow up chest CT to ensure resolution, small bilateral pleural effusion, mild dilatation o f the ascending thoracic aorta, recommended followup. ADMISSION DIAGNOSES: 1. Multifocal acute pneumonia with acute hypoxic respiratory failure. 2. Influenza A. 3. Lymphoma, Sezary syndrome. 4. Acute sepsis. DISCHARGE DIAGNOSES: 1. Multifocal acute pneumonia with acute hypoxic respiratory failure. 2. Influenza A. 3. Lymphoma, Sezary syndrome. 4. Acute sepsis. INITIAL H AND P: Please see previously dictated note by Dr. Hull. HOSPITAL COURSE: 1. Acute multilobar pneumonia with acute hypoxic respiratory failure. The patient was admitted to [facility] for treatments of influenza A and probable bacterial multilobar pneumonia. He received o xygen, respiratory treatments, a course of Tamiflu, IV azithromycin, and Rocephin. He was not initia lly placed on steroids, but these were added because of continued significant hypoxia. Over the cour se of his stay, his symptoms greatly improved. On the day of discharge, he was tolerating a diet, am bulating without difficulty, and had completed 5 days of Tamiflu therapy. However, he remained acute ly hypoxic and was amenable to discharge home with home O2. He does not have a local primary care pr ovider. He only lives in [place] half the year. He sees an oncologist at [facility] for his lymphoma treatment. It was highly recommended that he receive a primary care provider locally, and an appoin tment was scheduled for followup by Case Management. Home O2 was organized, and he was discharged in good condition with home O2, 1 more day of p.o. Omnicef and azithromycin (had 6 days of IV antibioti cs). 2. Lymphoma, Sezary syndrome. Hematology/Oncology consult was done while he was in the hospital. aDvian Hadley saw him and offered to help coordinate local care or chemotherapy for him. At this ti me, he is not interested in this option, but we will keep this in mind. He has been in contact with his primary oncologist, per his report, and says that his oncologist has requested copies of these st udies. Unsure if his primary oncologist or his primary care provider will follow up on the CT scan ankita lucio, but note that it was recommended to have a followup of his thoracic aorta size. He also had mild anemia throughout his stay with an initial hemoglobin of 12.2, discharge hemoglobin of 10.0. H e is unaware if this is normal or baseline for him. Again, can follow this up with either his primar y therapist speech or primary care here if he desires. DISCHARGE MEDICATIONS: Tylenol as needed, azithromycin 500 mg x1 day (to complete a 7-day course), T essalon Perles as needed, Omnicef 300 mg twice a day to complete 1 day (that would finish a seven-day course), Mucinex as needed, Mon[place] as needed, prednisone 20 mg twice a day (I have instructed him to follow up with either primary care or his oncologist regarding a very slow taper as he does take this chronically, but says only 1 mg a day. I have strongly advised him to not taper this on his own or stop it without discussing with a physician), albuterol inhaler as needed (asked Respiratory Therapy to instruct him on use prior to discharge), Istodax, mesalamine, Valtrex, and Zofran continued. DISCHARGE INSTRUCTIONS: He has an appointment with Dr. Stone at [facility] for followup/to establish care. He is to continue O2 use at 1-2 L continuous until instructed otherwise by Dr. Patricia on. Need to review a prednisone taper with either Dr. Stone or his primary oncologist. Need to fol low up CT findings of abdominothoracic aorta. Copy requested to: Dr. Stone /[id number]/MODL
== END 2017-07-19 13:32 | disposition home or self-care (01) | DRG 871 ==
LOC: F3E 20:00
PROVIDERS: ADMIT Internal Medicine Pulmonary Disease; ATTEND Internal Medicine Pulmonary Disease
DX: A41.9 Sepsis, unspecified organism (principal); J10.08 Influenza due to other identified influenza virus with other specified pneumonia; J96.01 Acute respiratory failure with hypoxia; C84.10 Sezary disease, unspecified site; J90 Pleural effusion, not elsewhere classified; I77.810 Thoracic aortic ectasia; D64.9 Anemia, unspecified
CPT/HCPCS: J0456; J0696; J1650; J2405; J7512; Q9967

== ENCOUNTER 2017-07-31 10:24 | Emergency (ER) | payer OTHER, BC ==
[2017-07-31] MEDS ORDERED: HYDROmorphONE/DILAUDID 1 MG/ML INJ IVP ONE (11:13)
[2017-07-31] MEDS ORDERED: ONDANSETRON 4 MG/2 ML VIAL ONE (11:24)
[2017-07-31] MEDS ORDERED: ONDANSETRON 4 MG/2 ML VIAL IVP ONE (11:42)
--- NOTE | 2017-07-31 11:42 | EDPHY ---
General Narrative: CHIEF COMPLAINT: Difficulty urinating, bladder stone HISTORY OF PRESENT ILLNESS: Patient complains of 1 week history of pain in the penis and difficulty urinating. He has had frequent urination and feels as though he has a bladder calculus. He has no flank pain. No fever. No nausea or vomiting. No trauma or injury. Seen by his primary care physician 1 week ago with reportedly normal urinalysis. He was treated with Bactrim due to the possibility of infection despite this. He has not had a kidney stone in the past. He has no other associated complaints or modifying factors. REVIEW OF SYSTEMS: Ten systems reviewed and are negative unless otherwise noted in the HPI PCP: Dr. Stone SPECIALISTS: [place] oncologist PAST MEDICAL HISTORY: Lymphoma, recent flu pneumonia, PAST SURGICAL HISTORY: No recent surgery SOCIAL HISTORY: Nonsmoker. Lives independently with his spouse FAMILY HISTORY: Noncontributory EXAMINATION General Appearance: Alert, no distress Head: normocephalic, atraumatic Eyes: Pupils equal and round, no conjunctival pallor or injection ENT, Mouth: Mucous membranes moist. Airway patent Neck: Normal inspection, supple, non-tender Respiratory: Lungs are clear to auscultation. No wheezing rhonchi or crackles Cardiovascular: Regular rate and rhythm. No murmur. Gastrointestinal: Abdomen is soft and no distention. No tympany. No rigidity. No CVA tenderness. Mild suprapubic tenderness. Back: non-tender, no bony abnormalities Neurological: A&O, nonfocal, normal gait Skin: Warm and dry, no rash. No petechiae or purpura Extremities: Nontender, no pedal edema Psychiatric: Mood and affect normal DIFFERENTIAL DIAGNOSES: Including but not limited to bladder calculus, renal colic, BPH, bladder mass, ureterolithiasis MDM: 11:30 a.m. Penile pain with patient thinking as a bladder calculus. Significant improvement with Dilaudid prior to my examination. Vital signs are stable. Laboratory studies pending. I have ordered CT scan without contrast to examine for this. 12:30 p.m. Laboratory studies reveal the no change in his creatinine. He does have possible urinary tract infection. 12:40 p.m. Notified by radiologist Dr. Finley. CT scan reveals evidence of post bladder urinary obstruction with hydronephrosis. There is also a incidental note of right direct inguinal hernia. 12:50 p.m. Case discussed with Dr. Mac the patient was re-evaluated. I recommended Dias catheter placement but he is hesitant at this time. We discussed this for 10 min regarding the nature of his injury, the likely progression and possibility of bladder rupture. He will consider this. I have ordered a postvoid residual bladder scan. 1:20 p.m. Notified by RN that the patient's postvoid residual is 700 mL. I have re- evaluated patient any has now agreed to proceed with Dias catheter. 1:50 p.m. Dias catheter placed without complication. Good return of urine. He is feeling much better. We discussed leg bag care. We discussed contacting the on -call urologist for further care. We discussed ED precautions. We discussed primary care follow-up for the incidentally discovered inguinal hernia. Urine is equivocal for infection and he just finished Bactrim today. I will wait for urine culture to be followed up with by urologist. He is comfortable this plan and discharged home stable condition. SUPERVISION: Patient was independently examined, but I discussed the case with my secondary supervising physician Dr. Mac - Diagnostics Imaging Results: Imaging Impressions Abdomen/Pelvis CT 07/31/17 11:42 Impression: 1. Low urinary outlet obstruction versus neurogenic bladder evidenced by distended urinary bladder and symmetric mild bilateral hydroureteronephrosis. 2. 2.4-cm bladder stone. No nephrolithiasis or obstructing ureteral calculi. 3. Constipation. No acute bowel process. 4. Normal caliber atherotic aorta. 5. Right direct inguinal hernia. Findings discussed with emergency department physician engineering assistant, Jose Armando Martin PA-C on July 31, 2017 at 12:52 p.m. Attention: This CT examination is specifically designed to evaluate patients who are clinically suspected of having acute obstructive uropathy. This examination does not use radiographic contrast, and as such, provides only a limited evaluation of the abdomen, pelvis, and retroperitoneum. If there is further clinical suspicion for pathological conditions other than obstructive uropathy, a complete CT evaluation of the abdomen and pelvis utilizing intravenous, oral, and rectal contrast should be considered. - History Smoking Status: Never smoked - Objective Vital Signs: Initial Vital Signs Temperature (C) 98.1 F 07/31/17 10:31 Heart Rate 107 H 07/31/17 10:31 Respiratory Rate 16 07/31/17 10:31 Blood Pressure 158/118 H 07/31/17 10:31 O2 Sat (%) 96 07/31/17 10:31 O2 Delivery Mode Room Air Allergies/Adverse Reactions: No Known Allergies Allergy (Verified 07/13/17 18:04) Home Medications: Medication Instructions Recorded Mesalamine 4.8 gm PO DAILY 07/13/17 Ondansetron Odt [Zofran Odt 4 mg 4 mg PO Q4 PRN 07/13/17 (*)] Romidepsin [Istodax] 10 mg IV MO 07/13/17 valACYclovir [Valtrex (*)] 500 mg PO DAILY PRN 07/13/17 Acetaminophen [Tylenol 325mg (*)] 650 mg PO Q4HRS PRN tab 07/19/17 Albuterol [Proventil Inhaler HFA 2 puffs IH Q4H PRN #1 mdi 07/19/17 (*)] Azithromycin [Zithromax] 500 mg PO DAILY 1 Days tab 07/19/17 Benzonatate [Tessalon Pearles] 100 mg PO TID PRN #30 cap 07/19/17 Cefdinir [Omnicef (*)] 300 mg PO BID 1 Days cap 07/19/17 Hydrocodone/APAP 5/325 [[place] 1 - 2 tab PO Q4HRS PRN #10 tab 07/19/17 5/325 (*)] guaiFENesin [Mucinex 600 MG (*)] 1,200 mg PO BID PRN #20 tab.er 07/19/17 predniSONE 20 mg PO BID #14 tablet 07/19/17 oxyCODONE HCL/ACETAMINOPHEN 1 each PO Q4-6PRN PRN #10 tablet 07/31/17 [Percocet 5-325 mg Tablet] Laboratory Results: Laboratory Results 07/31/17 12:15 07/31/17 12:15 07/31/17 07/31/17 07/31/17 12:15 12:15 12:00 WBC 12.53 10^3/uL H 10^3/uL (3.80-9.50) RBC 3.90 10^6/uL L 10^6/uL (4.40-6.38) Hgb 11.9 g/dL L g/dL (13.7-17.5) Hct 35.8 % L % (40.0-51.0) MCV 91.8 fL fL (81.5-99.8) MCH 30.5 pg pg (27.9-34.1) MCHC 33.2 g/dL g/dL (32.4-36.7) RDW 15.5 % H % (11.5-15.2) Plt Count 331 10^3/uL 10^3/uL (150-400) MPV 8.9 fL fL (8.7-11.7) Neut % (Auto) 91.0 % H % (39.3-74.2) Lymph % (Auto) 5.9 % L % (15.0-45.0) Mccracken % (Auto) 2.2 % L % (4.5-13.0) Eos % (Auto) 0.1 % L % (0.6-7.6) Baso % (Auto) 0.2 % L % (0.3-1.7) Nucleat RBC Rel Count 0.0 % % (0.0-0.2) Absolute Neuts (auto) 11.40 10^3/uL H 10^3/uL (1.70-6.50) Absolute Lymphs (auto) 0.74 10^3/uL L 10^3/uL (1.00-3.00) Absolute Monos (auto) 0.28 10^3/uL L 10^3/uL (0.30-0.80) Absolute Eos (auto) 0.01 10^3/uL L 10^3/uL (0.03-0.40) Absolute Basos (auto) 0.02 10^3/uL 10^3/uL (0.02-0.10) Absolute Nucleated RBC 0.00 10^3/uL 10^3/uL (0-0.01) Immature Gran % 0.6 % % (0.0-1.1) Immature Gran # 0.08 10^3/uL 10^3/uL (0.00-0.10) Sodium 128 mEq/L L mEq/L (135-145) Potassium 4.9 mEq/L mEq/L (3.5-5.2) Chloride 98 mEq/L mEq/L (97-110) Carbon Dioxide 19 mEq/l L mEq/l (22-31) Anion Gap 11 mEq/L mEq/L (8-16) BUN 12 mg/dL mg/dL (7-23) Creatinine 1.0 mg/dL mg/dL (0.7-1.3) Estimated GFR > 60 Glucose 121 mg/dL H mg/dL (70-100) Calcium 9.3 mg/dL mg/dL (8.5-10.4) Total Bilirubin 0.7 mg/dL mg/dL (0.1-1.4) Conjugated Bilirubin 0.3 mg/dL mg/dL (0.0-0.5) Unconjugated Bilirubin 0.4 mg/dL mg/dL (0.0-1.1) AST 24 IU/L IU/L (17-59) ALT 45 IU/L IU/L (21-72) Alkaline Phosphatase 54 IU/L IU/L (38-126) Total Protein 6.4 g/dL g/dL (6.3-8.2) Albumin 4.0 g/dL g/dL (3.5-5.0) Lipase 453 IU/L H IU/L (23-300) Urine Color YELLOW Urine Appearance MODERATELY TURBID Urine pH 5.0 (5.0-7.5) Ur Specific [place] 1.010 (1.002-1.030) Urine Protein 1+ H (NEGATIVE) Urine Ketones NEGATIVE (NEGATIVE) Urine Blood 3+ H (NEGATIVE) Urine Nitrate NEGATIVE (NEGATIVE) Urine Bilirubin NEGATIVE (NEGATIVE) Urine Urobilinogen NEGATIVE EU EU (0.2-1.0) Ur Leukocyte Esterase TRACE H (NEGATIVE) Urine RBC 50-182 /hpf H /hpf (0-3) Urine WBC 25-50 /hpf H /hpf (0-3) Ur Epithelial Cells NONE SEEN /lpf /lpf (NONE-1+) Urine Mucus TRACE /lpf /lpf (NONE-1+) Urine Glucose NEGATIVE (NEGATIVE) Medications Given: Discontinued Medications Hydromorphone HCl (Dilaudid) 1 mg IVP EDNOW ONE Stop: 07/31/17 11:14 Last Admin: 07/31/17 11:42 Dose: 1 mg Ondansetron HCl (Zofran) 4 mg IVP EDNOW ONE Stop: 07/31/17 11:43 Last Admin: 07/31/17 11:49 Dose: 4 mg Departure - Departure Disposition: Home, Routine, Self-Care Clinical Impression: Acute urinary retention, Bladder calculus, Inguinal hernia of right side without obstruction or gangrene Condition: Good Instructions: Urinary Retention in Men (ED), Dias Catheter Placement and Care (ED), Inguinal Hernia (ED) Additional Instructions: 1. Dias catheter with leg bag care as discussed. Keep leg bag below the bladder at all times 2. Contact the on-call urologist as provided for outpatient follow-up 3. Discussed the incidental noted inguinal hernia with primary care physician for surgical follow-up 4. ED precautions for worsening pain, fever, difficulty urinating, difficulty with bowel movements Referrals: Adrien Stone MD [Primary Care Provider] - As per Instructions Augusto Muñiz MD [Medical Doctor] - As per Instructions Prescriptions: oxyCODONE HCL/ACETAMINOPHEN [Percocet 5-325 mg Tablet] 1 each PO Q4-6PRN PRN # 10 tablet PRN Reason: Pain, Breakthrough
[2017-07-31 12:26] LABS: PLATELET COUNT 331 10^3/uL (150-400)
[2017-07-31 14:17] VITALS: BP 125/65; PULSE 92; RESP 16; TEMP 98.4; O2SAT 95
== END 2017-07-31 14:17 | disposition home or self-care (01) ==
PROC: 0T9B70Z Drainage of Bladder with Drainage Device, Via Natural or Artificial Opening (ICD-10-PCS; principal; 2017-07-31)
DX: N21.0 Calculus in bladder (principal); K40.90 Unilateral inguinal hernia, without obstruction or gangrene, not specified as recurrent
CPT/HCPCS: 51702; 74176; 96374; 96375; 99285; J1170; J2405

== ENCOUNTER 2017-08-01 11:11 | Emergency (ER) | payer OTHER, BC ==
--- NOTE | 2017-08-01 15:08 | EDPHY ---
General - History Smoking Status: Never smoked Narrative: CHIEF COMPLAINT: "want catheter out" HISTORY OF PRESENT ILLNESS: Patient returns to emergency department today with complaints of pain with his Dias catheter. I evaluated the patient yesterday and diagnosed him with urinary retention. This was likely due to BPH versus urethral stricture. CT scan was obtained with no other acute findings. Bladder scan revealed over 700 mL as. He was reluctant for Dias catheter placement at 1st. After further consideration and discussion he agreed. Dias catheter was placed he was discharged home. He said that he had increasing pain last night. This was so severe that he was unable to sleep. No bright red blood in the urine bag. He has been making urine but it has been concentrated. He says he has been drinking last because he was afraid to make too much urine. He has had no fever flank pain. No vomiting. He is here because he wants the Dias catheter out. REVIEW OF SYSTEMS: Ten systems reviewed and are negative unless otherwise noted in the HPI SPECIALISTS: Dr. Hong. First appointment on Tuesday PAST MEDICAL HISTORY: Cancer PAST SURGICAL HISTORY: No recent surgeries SOCIAL HISTORY: Nonsmoker FAMILY HISTORY: Noncontributory EXAMINATION General Appearance: Alert, no distress Head: normocephalic, atraumatic Eyes: Pupils equal and round, no conjunctival pallor or injection ENT, Mouth: Mucous membranes moist Neck: Normal inspection, supple, non-tender Respiratory: No retractions or distress Cardiovascular: Regular rate. Good signs of perfusion Gastrointestinal: Abdomen is soft and nontender. No tympany rigidity. : Dias catheter in place. There is no radha blood in the bag. The urine appears concentrated. No bleeding at the urethral meatus.. No balanitis Skin: Warm and dry, no rash Extremities: Nontender, no pedal edema Psychiatric: Mood and affect normal DIFFERENTIAL DIAGNOSES: Including but not limited to Dias catheter discomfort, urethral stricture, BPH , urinary retention MDM: 2:45 p.m. Physical discomfort from Dias catheter placement yesterday. He has no vomiting. No fever. No radha blood in the urine. examination is normal. He is here strictly because he is not tolerating the Dias catheter. I have ordered a bladder scan. 3:00 p.m. Notified by RN. Bladder scanner is negative for any volume. 3:10 p.m. I have discussed with the patient for 10 min. We discussed risks, benefits and alternatives. The patient is adamant that he wants the Dias catheter out. I informed him of the risk of urinary retention, bladder rupture, increasing hydronephrosis, acute kidney injury. He is willing to assume these risks. He is capable assuming these risks. He wants to proceed with Dias catheter discontinuation. This will be done at his request. 3:15 p.m. Dias catheter removed without complication. Case discussed with Dr. Hong and he has visited with the patient as well. We discussed return to ED precautions as above. He has an appointment tomorrow with Dr. Murray. SUPERVISION: Patient was independently examined, but I discussed the case with my secondary supervising physician Dr. Hong ([facility]) Medical Decision Making: I also saw the patient in the emergency department. I reviewed the history of him being here yesterday and having 700 mL residual urine in his bladder. I discussed with the patient his complaints of pain from the catheter and feeling like he needs to urinate all the time. He would like it removed. The patient and I discussed the possibility that he may need to return tonight because of inability to urinate. He expresses understanding of this possibility. He has an appointment with Urology tomorrow and he is short keep it. I also obtained a history that the patient has recently had an upper respiratory infection and has been using quite a bit of antihistamines and decongestants which may contribute to his urinary retention (Gabe Hong) - Objective Vital Signs: Initial Vital Signs Temperature (C) 36.5 C 08/01/17 11:41 Heart Rate 104 H 08/01/17 11:41 Respiratory Rate 20 08/01/17 11:41 Blood Pressure 110/67 08/01/17 11:41 O2 Sat (%) 96 08/01/17 11:41 O2 Delivery Mode Room Air Allergies/Adverse Reactions: No Known Allergies Allergy (Verified 07/13/17 18:04) Home Medications: Medication Instructions Recorded Mesalamine 4.8 gm PO DAILY 07/13/17 Ondansetron Odt [Zofran Odt 4 mg 4 mg PO Q4 PRN 07/13/17 (*)] Romidepsin [Istodax] 10 mg IV MO 07/13/17 valACYclovir [Valtrex (*)] 500 mg PO DAILY PRN 07/13/17 Acetaminophen [Tylenol 325mg (*)] 650 mg PO Q4HRS PRN tab 07/19/17 Albuterol [Proventil Inhaler HFA 2 puffs IH Q4H PRN #1 mdi 07/19/17 (*)] Azithromycin [Zithromax] 500 mg PO DAILY 1 Days tab 07/19/17 Benzonatate [Tessalon Pearles] 100 mg PO TID PRN #30 cap 07/19/17 Cefdinir [Omnicef (*)] 300 mg PO BID 1 Days cap 07/19/17 Hydrocodone/APAP 5/325 [[place] 1 - 2 tab PO Q4HRS PRN #10 tab 07/19/17 5/325 (*)] guaiFENesin [Mucinex 600 MG (*)] 1,200 mg PO BID PRN #20 tab.er 07/19/17 predniSONE 20 mg PO BID #14 tablet 07/19/17 oxyCODONE HCL/ACETAMINOPHEN 1 each PO Q4-6PRN PRN #10 tablet 07/31/17 [Percocet 5-325 mg Tablet] oxyCODONE HCL/ACETAMINOPHEN 1 each PO Q4-6PRN PRN #7 tablet 08/01/17 [Percocet 5-325 mg Tablet] Departure - Departure Disposition: Home, Routine, Self-Care Clinical Impression: Urinary retention Dias catheter problem Qualifiers: Encounter type: initial encounter Qualified Code(s): T83.9XXA - Unspecified complication of genitourinary prosthetic device, implant and graft, initial encounter Condition: Good Instructions: Urinary Retention in Men (ED) Additional Instructions: 1. ED precautions as discussed 2. Keep appointment with Urology tomorrow as scheduled Referrals: Adrien Stone MD [Primary Care Provider] - As per Instructions Ese Murray MD [Medical Doctor] - As per Instructions Prescriptions: oxyCODONE HCL/ACETAMINOPHEN [Percocet 5-325 mg Tablet] 1 each PO Q4-6PRN PRN #7 tablet PRN Reason: Pain, Breakthrough
[2017-08-01 15:31] VITALS: BP 120/84; PULSE 98; RESP 16; TEMP 97.5; O2SAT 94
== END 2017-08-01 15:31 | disposition home or self-care (01) ==
DX: T83.9XXA Unspecified complication of genitourinary prosthetic device, implant and graft, initial encounter (principal); R33.9 Retention of urine, unspecified; Z85.9 Personal history of malignant neoplasm, unspecified; Y73.2 Prosthetic and other implants, materials and accessory gastroenterology and urology devices associated with adverse incidents

== ENCOUNTER → 2018-11-28 | Outpatient (CLI) | payer OTHER, BC | LOC: FIMAGING 10:03 | PROVIDERS: ATTEND Family Medicine | DX: R05 Cough (principal); R91.8 Other nonspecific abnormal finding of lung field; C95.91 Leukemia, unspecified, in remission ==